=== PATIENT | female | born 1940 | race Hispanic/Latino ===

== ENCOUNTER 2021-03-09 14:38 | Inpatient (IN) | payer OTHER, MEDICARE ==
[2021-03-09] VITALS (27 sets, daily range): BP systolic 83–186; BP diastolic 28–102
[~2021-03-09] VITALS: Ht 157.5 cm; Wt 63.3 kg
[2021-03-09] MEDS ORDERED: ONDANSETRON HCL 4 MG/2 ML VIAL IVP SCH (15:00)
[2021-03-09] MEDS ORDERED: SODIUM CHLORIDE 0.9% 1000ML 1,000 ML IV ONE (15:12)
[2021-03-09 15:32] LABS: ABG BASE EXCESS -5.7 mmol/L (-2.0-3.0); ABG HCO3 20.3 mmol/L (21.0-28.0); ABG PCO2 42 mmHg (32-45)
[2021-03-09 15:36] LABS: BASOPHILS % (AUTO) 0.5 % (0.0-5.0); EOSINOPHILS % (AUTO) 2.1 % (0.0-8.0); HEMATOCRIT 35.5 % (36-48); LYMPHOCYTES % (AUTO) 6.3 % (21.0-51.0); MEAN CORPUSCULAR HEMOGLOBIN 26.5 pg (27.0-33.0); MEAN CORPUSCULAR HGB CONC 30.4 g/dL (32.0-36.0); MONOCYTES % (AUTO) 6.7 % (3.0-13.0); NEUTROPHILS % (AUTO) 83.8 % (40.0-77.0); PLATELET COUNT (AUTO) 220 K/uL (130-400); RED BLOOD CELL COUNT(AUTO) 4.08 MIL/uL (4.00-5.50); RED CELL DISTRIBUTION WIDTH 16.9 % (11.0-15.5); WHITE BLOOD COUNT (AUTO) 11.8 K/uL (4.8-10.8)
[2021-03-09] MEDS ORDERED: SODIUM BICARB 50MEQ 50ML VIAL IV SCH (15:42)
[2021-03-09] MEDS ORDERED: SODIUM BICARB 50MEQ 50ML VIAL 50 ML ONE (15:45)
[2021-03-09] MEDS ORDERED: DEXTROSE 50%-WATER 50 ML DISP.SYRIN IV ONE (15:45)
[2021-03-09] MEDS ORDERED: CALCIUM GLUCONATE 1 GM in SODIUM CHLORIDE 0.9% 100 ML IV SCH (15:45)
[2021-03-09] MEDS ORDERED: ALBUTEROL SULFATE 0.083% 2.5 MG/3 ML INH IH SCH (15:45)
[2021-03-09] MEDS ORDERED: INSULIN HUMULIN R 100 UNIT/ML 3ML IV SCH (15:45)
[2021-03-09] MEDS ORDERED: DEXTROSE 50%-WATER 50 ML DISP.SYRIN IV SCH (15:45)
[2021-03-09] MEDS ORDERED: CALCIUM GLUCONATE 1 GM/10 ML VIAL IV ONE (15:45)
[2021-03-09] MEDS ORDERED: INSULIN HUMULIN R 100 UNIT/ML 3ML ONE (15:46)
[2021-03-09] MEDS ORDERED: ALBUTEROL SULFATE 0.083% 2.5 MG/3 ML INH IH ONE (15:54)
[2021-03-09] MEDS ORDERED: ATROPINE SULFATE 0.1 MG/ML 10 ML SYG IVP ONE (16:00)
[2021-03-09 16:05] LABS: ALANINE AMINOTRANSFERASE 110 U/L (12-78); ALBUMIN 3.4 g/dL (3.5-5.0); ASPARTATE AMINOTRANSFERASE 137 U/L (10-37); BILIRUBIN,TOTAL 0.6 mg/dL (0.2-1.0); CARBON DIOXIDE 25 mmol/L (21-32); CHLORIDE 94 mmol/L (101-111); GLOMERULAR FILTR. RATE CALC 5 mL/min (>60); GLUCOSE,RANDOM 141 mg/dL (70-105); MAGNESIUM 2.5 mg/dL (1.80-2.40); SODIUM SERUM 132 mmol/L (136-145); TOTAL PROTEIN, SERUM 7.1 g/dL (6.0-8.3); TROPONIN I 0.06 ng/mL (0.00-0.06)
[2021-03-09 16:07] LABS: LIPASE < 50 U/L (114-286)
[2021-03-09] MEDS ORDERED: NOREPINEPHRINE 4MG/NS 250ML 250 ML IV ONE (16:08)
[2021-03-09 16:09] LABS: UREA NITROGEN, BLOOD 80 mg/dL (7-18)
[2021-03-09 16:10] LABS: CREATININE 8.4 mg/dL (0.5-1.5); POTASSIUM 8.5 mmol/L (3.5-5.1)
[2021-03-09] MEDS ORDERED: NOREPINEPHRINE 4MG/NS 250ML 250 ML IV SCH (17:30)
[2021-03-09] MEDS ORDERED: GUAIFENESIN-DM 200/20 MG 10 ML PO PRN (18:30)
[2021-03-09] MEDS ORDERED: LACTULOSE 20 GM/30 ML UDCUP PO PRN (18:30)
[2021-03-09] MEDS ORDERED: ONDANSETRON HCL 4 MG/2 ML VIAL IV PRN (18:30)
[2021-03-09] MEDS ORDERED: GLUCAGON 1MG KIT 1 MG ML IM PRN (18:30)
[2021-03-09] MEDS ORDERED: MAG HYDROX/AL HYDROX/SIMETH ES 30 ML SUSP UDCUP PO PRN (18:30)
[2021-03-09] MEDS ORDERED: DEXTROSE 50%-WATER 50 ML DISP.SYRIN IV PRN (18:30)
[2021-03-09] MEDS ORDERED: ACETAMINOPHEN 325 MG TAB PO PRN (18:30)
[2021-03-09] MEDS ORDERED: DIPHENHYDRAMINE HCL 25 MG CAPSULE PO PRN (18:30)
[2021-03-09] MEDS ORDERED: DiphenhydrAMINE HCL 50 MG/ML VIAL IV PRN (18:30)
[2021-03-09] MEDS ORDERED: NITROGLYCERIN 0.4 MG SL TAB SL PRN (18:30)
[2021-03-09 20:41] LABS: TROPONIN I 0.1 ng/mL (0.00-0.06)
[2021-03-09 20:55] LABS: HEMATOCRIT 35.6 % (36-48); MEAN CORPUSCULAR HEMOGLOBIN 26.4 pg (27.0-33.0); MEAN CORPUSCULAR HGB CONC 31.2 g/dL (32.0-36.0); MEAN CORPUSCULAR VOLUME 84.8 fL (79-99); PLATELET COUNT (AUTO) 226 K/uL (130-400); RED CELL DISTRIBUTION WIDTH 16.7 % (11.0-15.5); WHITE BLOOD COUNT (AUTO) 12.3 K/uL (4.8-10.8)
[2021-03-09] MEDS: INSULIN HUMULIN R 100 UNIT/ML 3ML SQ SCH (21:00)
[2021-03-09] MEDS: HEPARIN SODIUM 5000UNIT/ML 1ML VIAL SQ SCH (21:00)
[2021-03-09 21:04] LABS: CREATININE 2.9 mg/dL (0.5-1.5); POTASSIUM 3.2 mmol/L (3.5-5.1)
[2021-03-09 21:27] LABS: BASOPHILS % (MANUAL) 1 % (0-2); EOSINOPHILS % (MANUAL) 3 % (1-6); LYMPHOCYTES % (MANUAL) 9 % (22-44); MONOCYTES % (MANUAL) 6 % (2-9); SEGMENTED NEUTROPHILS % 81 % (40-70)
[2021-03-09 21:28] LABS: MAN.DIFF COMMENT-IMPRESSION MANUAL DIFFERENTIAL; PLATELET MORPHOLOGY COMMENT ADEQUATE
[2021-03-09] MEDS: ZOSYN 3.375GM+NS 50ML 50 ML IV SCH (21:39)
[2021-03-09] MEDS: IPRATROPIUM/ALBUTEROL SULFATE 3 ML SOLUTION IH SCH (23:52)
[2021-03-10] VITALS (13 sets, daily range): BP systolic 104–156; BP diastolic 42–64
[2021-03-10] MEDS: ACETAMINOPHEN 325 MG TAB PO PRN (04:32)
[2021-03-10 06:05] LABS: BASOPHILS % (AUTO) 0.5 % (0.0-5.0); EOSINOPHILS % (AUTO) 2.7 % (0.0-8.0); HEMATOCRIT 30.5 % (36-48); LYMPHOCYTES % (AUTO) 7.3 % (21.0-51.0); MEAN CORPUSCULAR HEMOGLOBIN 26.7 pg (27.0-33.0); MEAN CORPUSCULAR HGB CONC 31.5 g/dL (32.0-36.0); MONOCYTES % (AUTO) 7.3 % (3.0-13.0); NEUTROPHILS % (AUTO) 81.5 % (40.0-77.0); PLATELET COUNT (AUTO) 171 K/uL (130-400); RED BLOOD CELL COUNT(AUTO) 3.59 MIL/uL (4.00-5.50); RED CELL DISTRIBUTION WIDTH 16.6 % (11.0-15.5); WHITE BLOOD COUNT (AUTO) 9.9 K/uL (4.8-10.8)
[2021-03-10 06:13] LABS: HEMOGLOBIN A1C 10.6 % (4.0-6.0)
[2021-03-10] MEDS: IPRATROPIUM/ALBUTEROL SULFATE 3 ML SOLUTION IH SCH ×4 (06:19→23:15)
[2021-03-10 06:24] LABS: ALBUMIN 3.1 g/dL (3.5-5.0); BILIRUBIN,TOTAL 0.5 mg/dL (0.2-1.0); CREATININE 4.7 mg/dL (0.5-1.5); CRP QUANTITATIVE 43.6 mg/L (0.00-9.0); MAGNESIUM 1.8 mg/dL (1.80-2.40); PHOSPHORUS 6.6 mg/dL (2.5-4.9); POTASSIUM 4.7 mmol/L (3.5-5.1); THYROID STIMULATING HORMONE 2.47 uIU/mL (0.36-3.74); TOTAL PROTEIN, SERUM 6.4 g/dL (6.0-8.3); TROPONIN I 0.12 ng/mL (0.00-0.06)
[2021-03-10] MEDS: INSULIN HUMULIN R 100 UNIT/ML 3ML SQ SCH ×4 (07:30→21:00)
[2021-03-10] MEDS: ZOSYN 3.375GM+NS 50ML 50 ML IV SCH ×2 (10:05→21:47)
[2021-03-10] MEDS: HEPARIN SODIUM 5000UNIT/ML 1ML VIAL SQ SCH ×2 (10:06→21:47)
[2021-03-10 16:59] LABS: ALBUMIN 2.9 g/dL (3.5-5.0); CARBON DIOXIDE 29 mmol/L (21-32); CHLORIDE 95 mmol/L (101-111); CREATININE 5.7 mg/dL (0.5-1.5); GLOMERULAR FILTR. RATE CALC 8 mL/min (>60); GLUCOSE,RANDOM 179 mg/dL (70-105); POTASSIUM 5.1 mmol/L (3.5-5.1); SODIUM SERUM 136 mmol/L (136-145); UREA NITROGEN, BLOOD 38 mg/dL (7-18)
[2021-03-10 17:14] LABS: ALANINE AMINOTRANSFERASE 46 U/L (12-78); ASPARTATE AMINOTRANSFERASE 34 U/L (10-37); BILIRUBIN,TOTAL 0.4 mg/dL (0.2-1.0); TOTAL PROTEIN, SERUM 6.3 g/dL (6.0-8.3)
[2021-03-10 17:22] LABS: AMMONIA < 3 umol/L (11-32)
[2021-03-10] MEDS ORDERED: SODIUM CHLORIDE 0.9% 100 ML IV ONE (21:49)
[2021-03-11] VITALS (23 sets, daily range): BP systolic 137–190; BP diastolic 50–95
[2021-03-11] MEDS: IPRATROPIUM/ALBUTEROL SULFATE 3 ML SOLUTION IH SCH ×3 (06:14→18:54)
[2021-03-11 06:26] LABS: BASOPHILS % (AUTO) 0.7 % (0.0-5.0); EOSINOPHILS % (AUTO) 3.5 % (0.0-8.0); HEMATOCRIT 31.6 % (36-48); LYMPHOCYTES % (AUTO) 9.1 % (21.0-51.0); MEAN CORPUSCULAR HEMOGLOBIN 25.5 pg (27.0-33.0); MEAN CORPUSCULAR HGB CONC 30.4 g/dL (32.0-36.0); MONOCYTES % (AUTO) 8.7 % (3.0-13.0); NEUTROPHILS % (AUTO) 77.5 % (40.0-77.0); PLATELET COUNT (AUTO) 175 K/uL (130-400); RED BLOOD CELL COUNT(AUTO) 3.76 MIL/uL (4.00-5.50); RED CELL DISTRIBUTION WIDTH 16.5 % (11.0-15.5); WHITE BLOOD COUNT (AUTO) 8.6 K/uL (4.8-10.8)
[2021-03-11] MEDS: INSULIN HUMULIN R 100 UNIT/ML 3ML SQ SCH ×4 (07:30→20:22)
[2021-03-11 07:33] LABS: ALBUMIN 2.9 g/dL (3.5-5.0); BILIRUBIN,TOTAL 0.6 mg/dL (0.2-1.0); CREATININE 6.7 mg/dL (0.5-1.5); PHOSPHORUS 8.7 mg/dL (2.5-4.9); POTASSIUM 5.2 mmol/L (3.5-5.1); TOTAL PROTEIN, SERUM 6.6 g/dL (6.0-8.3)
[2021-03-11 10:12] LABS: HEPATITIS Bs ANTIGEN SCREEN P Negative (Negative)
[2021-03-11] MEDS: PANTOPRAZOLE SODIUM 40 MG TABLET.DR PO SCH (10:16)
[2021-03-11] MEDS: ZOSYN 3.375GM+NS 50ML 50 ML IV SCH ×2 (10:16→20:21)
[2021-03-11] MEDS: HEPARIN SODIUM 5000UNIT/ML 1ML VIAL SQ SCH ×2 (10:18→20:22)
[2021-03-11] MEDS ORDERED: TRAM50TA4 PO (10:44)
[2021-03-11] MEDS ORDERED: INSU100V IV (10:44)
[2021-03-11] MEDS ORDERED: ALBU0.63 IH (10:44)
[2021-03-11] MEDS ORDERED: ONDA4TAB10 PO (10:44)
[2021-03-11] MEDS ORDERED: INSU100V37 SQ (10:44)
[2021-03-11] MEDS ORDERED: GABA300C PO (10:44)
[2021-03-11] MEDS ORDERED: METO-391 PO (10:44)
[2021-03-11] MEDS ORDERED: CLON0.1T PO (10:44)
[2021-03-11] MEDS ORDERED: AMLO-258 PO (10:44)
[2021-03-11] MEDS ORDERED: TORS20TA4 PO (10:44)
[2021-03-11] MEDS ORDERED: AMLODIPINE BESYLATE 5 MG TAB PO SCH (11:30)
[2021-03-11] MEDS ORDERED: SODIUM CHLORIDE 0.9% 1000ML 1,000 ML IV PRN (16:45)
[2021-03-12] MEDS ORDERED: AMLODIPINE BESYLATE 5 MG TAB ONE
[2021-03-12] MEDS: IPRATROPIUM/ALBUTEROL SULFATE 3 ML SOLUTION IH SCH ×3 (00:45→11:00)
[2021-03-12 04:00] VITALS: BP 146/59
[2021-03-12 05:19] LABS: BASOPHILS % (AUTO) 0.9 % (0.0-5.0); EOSINOPHILS % (AUTO) 4.3 % (0.0-8.0); HEMATOCRIT 34.3 % (36-48); LYMPHOCYTES % (AUTO) 9.9 % (21.0-51.0); MEAN CORPUSCULAR HEMOGLOBIN 25.7 pg (27.0-33.0); MEAN CORPUSCULAR HGB CONC 30.9 g/dL (32.0-36.0); MEAN CORPUSCULAR VOLUME 83.1 fL (79-99); MONOCYTES % (AUTO) 8.6 % (3.0-13.0); NEUTROPHILS % (AUTO) 75.7 % (40.0-77.0); PLATELET COUNT (AUTO) 201 K/uL (130-400); RED BLOOD CELL COUNT(AUTO) 4.13 MIL/uL (4.00-5.50); RED CELL DISTRIBUTION WIDTH 16.3 % (11.0-15.5)
[2021-03-12 05:38] LABS: ALBUMIN 2.9 g/dL (3.5-5.0); BILIRUBIN,TOTAL 0.6 mg/dL (0.2-1.0); CREATININE 4.9 mg/dL (0.5-1.5); TOTAL PROTEIN, SERUM 6.9 g/dL (6.0-8.3)
[2021-03-12] MEDS: INSULIN HUMULIN R 100 UNIT/ML 3ML SQ SCH ×2 (06:43→11:20)
[2021-03-12 08:00] VITALS: BP 170/56
[2021-03-12] MEDS: ZOSYN 3.375GM+NS 50ML 50 ML IV SCH (09:37)
[2021-03-12] MEDS: PANTOPRAZOLE SODIUM 40 MG TABLET.DR PO SCH (09:37)
[2021-03-12] MEDS: HEPARIN SODIUM 5000UNIT/ML 1ML VIAL SQ SCH (09:47)
[2021-03-12] MEDS: ACETAMINOPHEN 325 MG TAB PO PRN (09:54)
[2021-03-12] MEDS ORDERED: METOPROLOL SUCCINATE 50 MG TAB.SR.24H PO SCH ×2 (10:13→21:00)
[2021-03-12] MEDS ORDERED: TORSEMIDE 20 MG TAB PO SCH (11:50)
[2021-03-12 12:00] VITALS: BP_SYST 142; BP_SYST 184; BP_DIAS 62; BP_DIAS 70
[2021-03-12] MEDS ORDERED: INSU100V37 SQ (13:03)
[2021-03-12 14:09] LABS: HEPATITIS A ANTIBODY IGM Negative (Negative); HEPATITIS B CORE IGM Negative (Negative); HEPATITIS Bs ANTIGEN SCREEN P Negative (Negative)
[2021-03-12] MEDS ORDERED: CLONIDINE HCL 0.1 MG TABLET PO SCH (21:00)
[2021-03-12] MEDS ORDERED: AMLODIPINE BESYLATE 5 MG TAB PO SCH ×2 (21:00)
[2021-03-12] MEDS ORDERED: ZOSYN 3.375GM+NS 50ML 50 ML IV SCH (21:00)
[2021-03-12] MEDS ORDERED: GABAPENTIN 300 MG CAPSULE PO SCH (21:00)
[2021-03-13] MEDS ORDERED: HOME MEDICATION 1 EACH SQ SCH (09:00)
== END 2021-03-12 14:20 | disposition home or self-care (01) | DRG 640 ==
LOC: EDH 14:38 → EDHIP 18:30 → 2CH 03-11 08:00 → 4BH 03-11 20:02
PROVIDERS: ADMIT Family Medicine; ATTEND Family Medicine
PROC: 5A12012 Performance of Cardiac Output, Single, Manual (ICD-10-PCS; principal; 2021-03-09)
PROC: 3E1M39Z Irrigation of Peritoneal Cavity using Dialysate, Percutaneous Approach (ICD-10-PCS; 2021-03-09)
DX: E87.5 Hyperkalemia (principal); J96.20 Acute and chronic respiratory failure, unspecified whether with hypoxia or hypercapnia; N18.6 End stage renal disease; I46.9 Cardiac arrest, cause unspecified; I12.0 Hypertensive chronic kidney disease with stage 5 chronic kidney disease or end stage renal disease; R57.9 Shock, unspecified; J90 Pleural effusion, not elsewhere classified; C85.90 Non-Hodgkin lymphoma, unspecified, unspecified site; I45.2 Bifascicular block; E87.2 Acidosis; J44.9 Chronic obstructive pulmonary disease, unspecified; E11.22 Type 2 diabetes mellitus with diabetic chronic kidney disease; E86.1 Hypovolemia; D63.8 Anemia in other chronic diseases classified elsewhere; G47.33 Obstructive sleep apnea (adult) (pediatric); E78.5 Hyperlipidemia, unspecified; E87.6 Hypokalemia; I25.10 Atherosclerotic heart disease of native coronary artery without angina pectoris; I44.30 Unspecified atrioventricular block; I45.4 Nonspecific intraventricular block; I48.91 Unspecified atrial fibrillation; K57.90 Diverticulosis of intestine, part unspecified, without perforation or abscess without bleeding; I25.2 Old myocardial infarction; Z99.2 Dependence on renal dialysis; Z99.81 Dependence on supplemental oxygen; Z88.6 Allergy status to analgesic agent; Z90.710 Acquired absence of both cervix and uterus; Z91.11 Patient's noncompliance with dietary regimen; Z91.19 Patient's noncompliance with other medical treatment and regimen
CPT/HCPCS: 36415; 36600; 70450; 71045; 74176; 80048; 80053; 80074; 82140; 82435; 82550; 82803; 82947; 82948; 83036; 83605; 83690; 83735; 83874; 84100; 84132; 84145; 84295; 84443; 84484; 85018; 85025; 86140; 86704; 86706; 87340; 90935; 92950; 93005; 93306; 93356; 93970; 94640; 94664; 99291; G0378; J0461; J0610; J1644; J1815; J2405; J2543; J3490; J7030; J7070